=== PATIENT | female | born 1990 | race Native Hawaiian/Other Pacific Islander ===

== ENCOUNTER 2019-01-15 18:34 | Emergency (ER) | payer OTHER ==
[~2019-01-15] VITALS: Ht 160 cm; Wt 93.0 kg
[2019-01-15 19:49] LABS: PLATELET COUNT 369 K/uL (152-353)
[2019-01-15 20:02] LABS: POTASSIUM 3.3 mmol/L (3.6-5.2)
[2019-01-15 21:20] VITALS: BP 140/70; TEMP 98.5
== END 2019-01-15 21:25 | disposition home or self-care (01) ==
LOC: ED 18:34
PROVIDERS: Family Medicine
DX: J32.9 Chronic sinusitis, unspecified (principal); E87.6 Hypokalemia; R51 Headache
CPT/HCPCS: 80053; 81000; 85027; 87502; 87651; 99283

== ENCOUNTER 2019-03-20 21:49 | Emergency (ER) | payer OTHER ==
[~2019-03-20] VITALS: Ht 162.6 cm; Wt 88.5 kg
[2019-03-20 22:29] LABS: PLATELET COUNT 403 K/uL (152-353)
[2019-03-20 22:36] LABS: POTASSIUM 3.4 mmol/L (3.6-5.2); SODIUM 138 mmol/L (136-145)
[2019-03-20 23:49] VITALS: BP 94/58; TEMP 98.1
== END 2019-03-20 23:50 | disposition home or self-care (01) ==
LOC: ED 21:49
PROVIDERS: Emergency Medicine
DX: R07.89 Other chest pain (principal); K21.9 Gastro-esophageal reflux disease without esophagitis
CPT/HCPCS: 80053; 82150; 82550; 82553; 83690; 84484; 85027; 85379; 93005; 96374; 99284; J1885

== ENCOUNTER 2021-01-03 16:20 | Emergency (ER) | payer OTHER ==
[~2021-01-03] VITALS: Ht 160 cm; Wt 88.0 kg
[2021-01-03 16:35] VITALS: TEMP 99.2
[2021-01-03 18:10] VITALS: BP 132/85
== END 2021-01-03 18:10 | disposition home or self-care (01) ==
LOC: ED 16:20
DX: S51.812A Laceration without foreign body of left forearm, initial encounter (principal); S80.212A Abrasion, left knee, initial encounter; S50.812A Abrasion of left forearm, initial encounter; S70.312A Abrasion, left thigh, initial encounter; S70.311A Abrasion, right thigh, initial encounter; Y09 Assault by unspecified means; Y92.524 Gas station as the place of occurrence of the external cause
CPT/HCPCS: 99282

== ENCOUNTER 2021-11-20 16:32 | Emergency (ER) | payer OTHER ==
[~2021-11-20] VITALS: Ht 160 cm; Wt 88.0 kg
[2021-11-20 16:43] VITALS: TEMP 97
[2021-11-20 19:48] LABS: PLATELET COUNT 417 K/uL (152-353)
[2021-11-20 19:54] LABS: POTASSIUM 3.7 mmol/L (3.6-5.2)
[2021-11-20 20:50] VITALS: BP 104/64
== END 2021-11-20 21:06 | disposition home or self-care (01) ==
LOC: ED 16:32
PROVIDERS: Emergency Medicine
DX: N93.8 Other specified abnormal uterine and vaginal bleeding (principal)
CPT/HCPCS: 36415; 80053; 81002; 81015; 81025; 85027; 99282

== ENCOUNTER 2022-01-09 17:06 | Emergency (ER) | payer OTHER ==
[~2022-01-09] VITALS: Ht 160 cm; Wt 88.5 kg
[2022-01-09 17:10] VITALS: TEMP 97.2
[2022-01-09 18:24] LABS: PLATELET COUNT 349 K/uL (152-353)
[2022-01-09 18:30] VITALS: BP 118/72
== END 2022-01-09 18:41 | disposition home or self-care (01) ==
LOC: ED 17:06
PROVIDERS: Emergency Medicine Emergency Medical Services
DX: J45.909 Unspecified asthma, uncomplicated (principal); U07.1 COVID-19
CPT/HCPCS: 81002; 85027; 87502; 87635; 99283; U0003

== ENCOUNTER 2023-01-09 12:05 | Emergency (ER) | payer OTHER ==
[~2023-01-09] VITALS: Ht 160 cm; Wt 89.8 kg
[2023-01-09 12:06] VITALS: BP 125/78; TEMP 98.5
== END 2023-01-09 14:12 | disposition home or self-care (01) ==
LOC: ED 12:05
PROC: 2W3KX2Z Immobilization of Left Finger using Cast (ICD-10-PCS; principal; 2023-01-09)
DX: S93.602A Unspecified sprain of left foot, initial encounter (principal); S90.32XA Contusion of left foot, initial encounter; X58.XXXA Exposure to other specified factors, initial encounter
CPT/HCPCS: 81025; 99282